=== PATIENT | male | born 1955 | race Caucasian/White ===

== ENCOUNTER 2017-08-29 03:41 | Inpatient (IN) | payer MEDICAID ==
[~2017-08-29] VITALS: Ht 172.7 cm; Wt 86.2 kg
[2017-08-29] MEDS ORDERED: HYDROMORPHONE 1 MG/1 ML DISP.SYRIN IV ONE (04:00)
[2017-08-29] MEDS ORDERED: ONDANSETRON IV *ER 4 MG/2 ML VIAL IV ONE (04:00)
--- NOTE | 2017-08-29 04:00 | NUR ---
Patient brought into ER by [facility] for c/o CP radiating to bilatreral shoulder that started at 0200 today. Here for pain worsening
[2017-08-29 04:04] LABS: BASOPHILS # (AUTO) 0.1 K/uL (0.0-8.0); BASOPHILS % (AUTO) 0.6 % (0.0-2.0); EOSINOPHILS # (AUTO) 0.2 K/uL (0.0-0.7); EOSINOPHILS % (AUTO) 1.9 % (0.0-7.0); HEMATOCRIT 48.9 % (40-50); HEMOGLOBIN 16.8 G/DL (14.0-18.0); LYMPHOCYTES # (AUTO) 3.2 K/UL (0.8-4.8); LYMPHOCYTES % (AUTO) 29.9 % (20.5-51.5); MEAN CORPUSCULAR HEMOGLOBIN 30.9 UUG (27.0-31.0); MEAN CORPUSCULAR HGB CONC 34 g/dL (32.0-37.0); MEAN CORPUSCULAR VOLUME 89.7 FL (82.0-92.0); MONOCYTES # (AUTO) 0.5 K/UL (0.1-1.30); NEUTROPHILS # (AUTO) 6.6 K/UL (1.8-8.9); NEUTROPHILS % (AUTO) 62.6 % (38.5-71.5); PLATELET COUNT (AUTO) 239 K/UL (150-450); RED BLOOD CELL COUNT(AUTO) 5.45 MIL/UL (4.7-6.1); WHITE BLOOD COUNT (AUTO) 10.6 K/UL (4.0-11.2)
[2017-08-29 04:09] LABS: CREATININE 1.3 mg/dL (0.6-1.3); POTASSIUM 3.6 mmol/L (3.5-5.1)
[2017-08-29] MEDS ORDERED: ONDANSETRON 4 MG/2 ML VIAL ONE (04:17)
[2017-08-29] MEDS ORDERED: HYDROMORPHONE 4 MG/1 ML DISP.SYRIN ONE (04:17)
[2017-08-29 04:21] LABS: BILIRUBIN,DIRECT 0.1 mg/dL (0.0-0.2); BILIRUBIN,TOTAL 0.4 mg/dL (0.2-1.0); TOTAL PROTEIN, SERUM 7.7 g/dL (6.4-8.2)
--- NOTE | 2017-08-29 05:00 | NUR ---
Patient sleeping on and off with no distress noted. Pain is 0/10
[2017-08-29] MEDS ORDERED: IV NORMAL SALINE 1000 ML BAG IV ONE (05:30)
--- NOTE | 2017-08-29 05:58 | NUR ---
Patient out of unit for ct scan via wheelchair
[2017-08-29] MEDS ORDERED: IOHEXOL 350 100 ML INFUS..BTL ONE (06:03)
[2017-08-29] MEDS ORDERED: IV NORMAL SALINE 250 ML IV ONE (06:03)
[2017-08-29] MEDS ORDERED: NORMAL SALINE FLUSH 10 ML DISP.SYRIN ONE (06:03)
--- NOTE | 2017-08-29 06:18 | NUR ---
Patient back from ct scan with no distress noted
--- NOTE | 2017-08-29 06:51 | NUR ---
Belonging list completed. Patient has $100.00x3,$20.00x5,$10.00x2,$5.00x3,$1.00x1 with total of $436.00 in donald. Has x3 credit card,reading glasses and cell phone. Patient refused valuable to be placed in safe
--- NOTE | 2017-08-29 07:00 | NUR ---
Hands off report received from Brian ZIMMER. Pt resting in [facility], states he is pain free at this time. Pend admission to tele post change of shift.
--- NOTE | 2017-08-29 08:42 | NUR ---
Pt trans to tele, NAD noted.
--- NOTE | 2017-08-29 09:00 | NUR ---
ADMITTED FROM HOME VIA ER A 62 YR OLD C/O CHEST PAIN AFTER MIDNIGHT, AOX3 STILL COMPAINING OF CHEST PAIN 2/10 BUT [email or web address].SR 75 ON MONITOR. ORIENTATION TO ROOM, AND ROUTINE INITIAL ASSESSMENT INITIATED WILL NOTIFY MD OF ADMISSION
[2017-08-29 09:45] VITALS: BP 139/82
[2017-08-29] MEDS ORDERED: MAGNESIUM HYDROXIDE 30 ML LIQUID UDC PO PRN (11:45)
[2017-08-29] MEDS ORDERED: METOPROLOL TARTRATE 25 MG TABLET PO SCH (11:45)
[2017-08-29] MEDS ORDERED: ACETAMINOPHEN 325 MG TABLET PO PRN (11:45)
[2017-08-29] MEDS ORDERED: ONDANSETRON 4 MG/2 ML VIAL IV PRN (11:45)
[2017-08-29] MEDS ORDERED: ZOLPIDEM 5 MG TABLET PO PRN (11:45)
[2017-08-29] MEDS ORDERED: HYDROCODONE/APAP 5-325MG TABLET PO PRN (11:45)
[2017-08-29 12:00] VITALS: BP 123/70
[2017-08-29] MEDS ORDERED: ASPIRIN 81 MG TAB.CHEW PO SCH (13:00)
[2017-08-29 15:23] VITALS: BP 120/78
[2017-08-29] MEDS ORDERED: TRAM50TA2 PO (17:14)
--- NOTE | 2017-08-29 18:28 | NUR ---
DISCHARGE HOME BY UBER WITH PRESCRIPTION AND F/U INSTRUCTION. PATIENT IS STABLE
[2017-08-30] MEDS ORDERED: PANTOPRAZOLE SODIUM 40 MG TABLET.DR PO SCH (07:00)
[2017-08-30] MEDS ORDERED: ASPIRIN 81 MG TAB.CHEW PO SCH (09:00)
== END 2017-08-29 18:30 | disposition home or self-care (01) | DRG 203 ==
LOC: ER 03:45 → TELE 08:41
PROVIDERS: ADMIT Internal Medicine; ATTEND Internal Medicine
DX: M94.0 Chondrocostal junction syndrome [Tietze] (principal); K76.89 Other specified diseases of liver; J06.9 Acute upper respiratory infection, unspecified; Z87.891 Personal history of nicotine dependence; R94.31 Abnormal electrocardiogram [ECG] [EKG]; M51.34 Other intervertebral disc degeneration, thoracic region; Z68.28 Body mass index [BMI] 28.0-28.9, adult; E66.9 Obesity, unspecified; R03.0 Elevated blood-pressure reading, without diagnosis of hypertension
CPT/HCPCS: 36415; 70030-TC; 71010; 71275; 85025; 85730; 93005; A4663; J1170; J2405; J3490; J7030; J7050; Q9967

== ENCOUNTER 2019-01-30 15:46 | Emergency (ER) | payer SELFPAY ==
[~2019-01-30] VITALS: Ht 175.3 cm; Wt 86.2 kg
[~2019-01-30 15:46] MED LIST: TRAM50TA2 PO
--- NOTE | 2019-01-30 16:02 | NUR ---
TIFFANY SALINAS AT BEDSIDE FOR MSE.
--- NOTE | 2019-01-30 16:17 | NUR ---
HEATING ELEMENT REPAIRER AT BEDSIDE.
[2019-01-30] MEDS ORDERED: KETOROLAC TROMETHAMINE 30 MG INJ IM ONE (16:30)
[2019-01-30 16:34] VITALS: BP 152/88
[2019-01-30] MEDS ORDERED: KETOROLAC TROMETHAMINE 30 MG INJ ONE (16:34)
--- NOTE | 2019-01-30 16:36 | NUR ---
Patient discharged to home in stable conditon. Written and verbal after care instructions given. Patient verbalizes understanding of instructions. ALL BELONGINGS W/ PT. PT SELF-AMBULATED W/O DIFFICULTY.
== END 2019-01-30 16:38 | disposition home or self-care (01) ==
LOC: ER 15:48
DX: S09.90XA Unspecified injury of head, initial encounter (principal); M79.641 Pain in right hand; M79.642 Pain in left hand; Z79.899 Other long term (current) drug therapy; Z87.891 Personal history of nicotine dependence; V43.52XA Car driver injured in collision with other type car in traffic accident, initial encounter; Y93.89 Activity, other specified; Y92.89 Other specified places as the place of occurrence of the external cause; Y99.8 Other external cause status
CPT/HCPCS: 73130 ×2; 96372; 99283; J1885; A4663

== ENCOUNTER 2023-01-25 17:58 | Emergency (ER) | payer MEDICARE, OTHER ==
[~2023-01-25] VITALS: Ht 172.7 cm; Wt 86.2 kg
--- NOTE | 2023-01-25 19:15 | NUR ---
Pt seen by . Safety measures in place. Will continue to monitor.
--- NOTE | 2023-01-25 19:25 | NUR ---
Report given to accepting RN. Addendum: 01/25/23 at 1926 by MEME Pt remains stable.
[2023-01-25] MEDS ORDERED: HYDR-4209 PO (21:42)
[2023-01-25] MEDS ORDERED: HYDROCODONE/APAP 5-325MG TABLET ONE (21:48)
[2023-01-25] MEDS: HYDROCODONE/APAP 5-325MG TABLET PO ONE (21:49)
--- NOTE | 2023-01-25 22:00 | NUR ---
JOSEP WRAP APPLIED TO R FT AND CRUTCH TRAINING DONE.
[2023-01-25 22:12] VITALS: BP 158/88
--- NOTE | 2023-01-25 22:19 | NUR ---
Patient discharged to home in stable condition. Written and verbal after care instructions given. Patient verbalizes understanding of instructions. Stressed follow up or return to ER for worsening s/s. Patient ambulated out with crutches, verbalized understanding of education, vss, medicated for pain, no complaint voiced.
== END 2023-01-25 22:10 | disposition home or self-care (01) ==
LOC: ER 17:59
DX: S93.601A Unspecified sprain of right foot, initial encounter (principal); F17.210 Nicotine dependence, cigarettes, uncomplicated; Z79.899 Other long term (current) drug therapy; X50.1XXA Overexertion from prolonged static or awkward postures, initial encounter; Y93.89 Activity, other specified; Y92.89 Other specified places as the place of occurrence of the external cause; Y99.8 Other external cause status
CPT/HCPCS: 73630; 73700; A4663

== ENCOUNTER 2024-02-19 16:51 | Emergency (ER) | payer MEDICARE, OTHER ==
[~2024-02-19] VITALS: Ht 172.7 cm; Wt 88.5 kg
[~2024-02-19 16:51] MED LIST changes: +HYDR-4209 PO
[2024-02-19] MEDS ORDERED: HYDR-3972 PO (17:33)
[2024-02-19] MEDS ORDERED: PRED50TA PO (17:33)
[2024-02-19] MEDS ORDERED: predniSONE 20 MG TABLET ONE (17:36)
[2024-02-19] MEDS ORDERED: HYDROCODONE/APAP 5-325MG TABLET ONE (17:37)
[2024-02-19] MEDS: predniSONE 20 MG TABLET PO ONE (17:38)
[2024-02-19] MEDS: HYDROCODONE/APAP 5-325MG TABLET PO ONE (17:39)
[2024-02-19 17:42] VITALS: BP 159/89; O2SAT 95
[2024-02-19] MEDS ORDERED: WALK1EAC55 MC (17:56)
== END 2024-02-19 17:50 | disposition home or self-care (01) ==
LOC: ER 16:53
DX: M10.9 Gout, unspecified (principal); Z79.899 Other long term (current) drug therapy
CPT/HCPCS: 99283; J7512; A4606; A4663